=== PATIENT | male | born 1960 | race Caucasian/White ===

== ENCOUNTER → 2017-02-03 | Outpatient (CLI) | payer OTHER ==
--- NOTE | 2017-02-03 12:55 | KCIC ---
MRI study of the pelvis without contrast Clinical indications: Left testicular pain and scrotal pain for 3 months. No known injury. Outside testicular sonogram demonstrated a 4 mm hypoechogenicity of the left testicle. TECHNIQUE: Noncontrast MRI sequences of the pelvis were performed in all 3 planes. FINDINGS: Both testicles are homogeneous without mass. Epididymis is symmetric on both sides. There is mild hydrocele of the left scrotum. No inguinal canal hernia or mass is seen. No enlarged pelvic lymphadenopathy is seen. No intraluminal filling defect of the urinary bladder is seen. The prostate gland is mildly enlarged and indents the floor of the urinary bladder. The prostate gland measures 56 mm in transverse dimension. There is a round focus of signal abnormality involving the midshaft of the left femur. This is bright on T2-weighted images and low signal on T1 weighted images. The borders are ill-defined. This lesion measures 33 mm in vertical dimension and 19 mm in transverse dimension and 22 mm in AP dimension. No extraosseous component is seen. There is thinning of the cortex here. No other marrow infiltrative lesion of the pelvic bones is seen. Incidental note is made of a diffuse disc protrusion at L5-S1. IMPRESSION: No testicular mass is seen. Therefore, recommend continued sonographic follow-up of the testicle. A small left-sided hydrocele is seen. Round lesion of the midshaft of the left femur. Metastatic disease or multiple myeloma are top considerations. Correlation with clinical history is needed. A whole-body bone scan may be helpful to evaluate for any additional lesions. Diffuse disc protrusion of L5-S1. Radiculopathy of the lumbar spine may radiate into the testicle or scrotum or groin. Therefore, a dedicated lumbar spine MRI study may be helpful for further evaluation. Electronically signed by: Rowdy Kulkarni MD (02/03/2017 12:52 PM) [id number]
== END | disposition home or self-care (01) ==
LOC: KCIC MRI 10:22
PROVIDERS: ATTEND Family Medicine
DX: C90.00 Multiple myeloma not having achieved remission (principal); N43.3 Hydrocele, unspecified; M51.17 Intervertebral disc disorders with radiculopathy, lumbosacral region
CPT/HCPCS: 72195

== ENCOUNTER → 2017-02-10 | Outpatient (CLI) | payer OTHER ==
--- NOTE | 2017-02-11 07:54 | KCIC ---
MRI Lumbar Spine without contrast History: Low back pain Technique: Multiplanar, multi sequential noncontrast MR imaging was performed of the lumbar spine. Contrast: None Comparison: None Findings: Lumbar vertebral body stature is maintained. There is negligible posterior subluxation L5 relative S1. The conus terminates at T12-L1. There is moderate to severe degenerative disc disease at L5-S1, minimally at more superior levels. There are anterior and posterior annular tears at L2-3 and anterior annular tear at L3-4. There is no significant marrow edema. L1-L2: Neural foramina and spinal canal are adequate. There is negligible posterior bulge. L2-L3: There is minimal disc osteophyte complex and bulge. Spinal canal and neural foramina are adequate. L3-L4: There is minimal disc osteophyte complex and shallow bulge and central protrusion without significant neural impingement. Spinal canal is adequate. There is minimal inferior narrowing of the distal right neural foramen, left neural foramen overall adequate. L4-L5: There is negligible disc osteophyte complex. Spinal canal and neural foramina are adequate L5-S1: There is shallow broad posterior bulge/protrusion without significant impingement of the descending S1 nerve roots although near ventral surface descending right S1 nerve root. Spinal canal is overall adequate. There is mild left and [id number] distal right neural foramina compromise. Impression: 1. There is degenerative disc disease greatest at L5-S1, minimally at more superior levels. There is no significant lumbar spinal stenosis. Shallow broad posterior bulge/protrusion at L5-S1 is near the descending right S1 nerve root without significant impingement. Electronically signed by: Derrick Suarez MD (02/11/2017 7:51 AM) [id number]
== END | disposition home or self-care (01) ==
LOC: KCIC MRI 16:23
PROVIDERS: ATTEND Family Medicine
DX: M51.37 Other intervertebral disc degeneration, lumbosacral region (principal); M51.27 Other intervertebral disc displacement, lumbosacral region; M51.36 Other intervertebral disc degeneration, lumbar region
CPT/HCPCS: 72148